=== PATIENT | male | born 1980 | race Caucasian/White ===

== ENCOUNTER 2023-08-29 06:14 | Day surgery (SDC) | payer MEDICARE, OTHER, SELFPAY ==
[2023-08-24 08:06] VITALS: BMI 41.3
[2023-08-29] VITALS (11 sets, daily range): BP systolic 117–133; BP diastolic 72–99; BMI 41.3
== END 2023-08-29 12:33 | disposition home or self-care (01) ==
LOC: GI 06:14
PROVIDERS: ATTENDING PHYSICIAN Internal Medicine Critical Care Medicine
DX: D14.31 Benign neoplasm of right bronchus and lung (principal); J98.4 Other disorders of lung; R91.8 Other nonspecific abnormal finding of lung field; R59.0 Localized enlarged lymph nodes; R91.1 Solitary pulmonary nodule
CPT/HCPCS: 31629; 31645; 31627; 31623; 31624; 31654; 88173; 88305; 88312; 71045; 76000; 87015; 87070; 87102; 87106; 87116; 87205; 88112; 88333; 94640; C1887

== ENCOUNTER → 2023-11-25 | Outpatient (REF) | payer MEDICARE, OTHER, SELFPAY | LOC: DHSLP | PROVIDERS: ATTENDING PHYSICIAN Internal Medicine Critical Care Medicine; FAMILY PHYSICIAN Nurse Practitioner | DX: G47.33 Obstructive sleep apnea (adult) (pediatric) (principal) | CPT/HCPCS: 95811 ==

== ENCOUNTER → 2023-12-30 13:13 | Outpatient (REF) | payer MEDICARE, OTHER, SELFPAY | LOC: HWRCS 13:13 | PROVIDERS: ATTENDING PHYSICIAN Internal Medicine Critical Care Medicine; FAMILY PHYSICIAN Nurse Practitioner | DX: D86.9 Sarcoidosis, unspecified (principal); R91.8 Other nonspecific abnormal finding of lung field | CPT/HCPCS: 93306 ==

== ENCOUNTER → 2024-03-02 11:23 | Outpatient (REF) | payer MEDICARE, OTHER, SELFPAY | LOC: HWCARD 11:23 | PROVIDERS: ATTENDING PHYSICIAN Registered Nurse; FAMILY PHYSICIAN Nurse Practitioner | DX: R94.31 Abnormal electrocardiogram [ECG] [EKG] (principal); Z79.899 Other long term (current) drug therapy | CPT/HCPCS: 93005 ==

== ENCOUNTER → 2024-04-27 09:52 | Outpatient (REF) | payer MEDICARE, SELFPAY | LOC: HWRAD 09:52 | PROVIDERS: ATTENDING PHYSICIAN Nurse Practitioner | DX: E66.01 Morbid (severe) obesity due to excess calories (principal); R74.8 Abnormal levels of other serum enzymes | CPT/HCPCS: 76700 ==

== ENCOUNTER → 2024-05-25 12:16 | Outpatient (REF) | payer MEDICARE, SELFPAY | LOC: HWRAD 12:16 | PROVIDERS: ATTENDING PHYSICIAN Family Medicine; FAMILY PHYSICIAN Nurse Practitioner | DX: J20.9 Acute bronchitis, unspecified (principal) | CPT/HCPCS: 71046 ==

== ENCOUNTER → 2024-06-06 11:04 | Outpatient (REF) | payer MEDICARE, SELFPAY | LOC: HWRAD 11:04 | PROVIDERS: ATTENDING PHYSICIAN Family Medicine; FAMILY PHYSICIAN Nurse Practitioner | DX: J18.9 Pneumonia, unspecified organism (principal) | CPT/HCPCS: 71046 ==

== ENCOUNTER 2024-06-08 11:12 | Emergency (ER) | payer MEDICARE, OTHER, SELFPAY ==
[2024-06-08 11:13] VITALS: BP 124/77
--- NOTE | 2024-06-08 11:39 | ED.GENMED ---
History of Present Illness
General
Chief Complaint: Breathing Problem
Source: patient
Exam Limitations: none
Time Seen by Provider: 06/08/24 11:21
History of Present Illness
History of Present Illness:
44-year-old male with history of sarcoidosis dosis, depression, hypertension, hyperlipidemia presents in referral from family doctor's office for evaluation of shortness of breath. Patient has been having this intermittently for several months. He
notes an ongoing cough for about 6 weeks that is dry. No hemoptysis. No leg swelling or calf pain. He has had x-rays most recently 2 days ago and multiple CT scans of his chest. He is followed by pulmonology. No fever or vomiting. No other
complaints at this time
Phy Exam
Physical Exam
Physical Exam:
General: Well-appearing male nontoxic no acute respiratory distress
HEENT: Normocephalic atraumatic
Heart: Regular rate and rhythm
Lungs: Clear no obvious wheeze or rales
Extremities: No cyanosis or edema
Skin: Warm no rash
Course
Vital Signs
Initial and Last Documented VS:
Initial Vital Signs
Temp Pulse Resp BP Pulse Ox
97.9 F 89 16 124/77 94
06/08/24 11:13 06/08/24 11:13 06/08/24 11:13 06/08/24 11:13 06/08/24 11:13
Last Documented Vital Signs
Temp Pulse Resp BP Pulse Ox
97.9 F 89 16 124/77 96
06/08/24 11:13 06/08/24 11:13 06/08/24 11:13 06/08/24 11:13 06/08/24 11:39
MDM/Problems Addressed
Differential Diagnosis Includes:
Patient sent in for evaluation of ongoing shortness of breath. No distress upon evaluation. Not hypoxic. I reviewed x-ray from 2 days ago which shows interval improvement of the airspace disease of the right base but shows persistence of symptoms
of the spiculated nodules.
*Critical Care Note
Total Time (30-74mins, 75-104mins- exclusive of procedures): Not Applicable
Update Note
Update Note:
Had long discussion with patient regarding treatment options. Also reach out to the family doctor who saw him today. Per the family doctor in the office his oxygen dropped to 91% and he was tachypneic after nebulizer. Upon further conversation
patient states he feels okay. He denies any new onset shortness of breath. Offered workup here including laboratory analysis CAT scan of chest for further evaluation of dyspnea however he expresses a desire to go home and follow-up with
pulmonology. Family doctor recently prescribed a new course of antibiotics that he is not started. I advise he start this and we will add a steroid and an albuterol inhaler until follow-up. He and father were in agreement with this plan.
ED Attending Note
-
Portions of this chart may have been created with voice recognition software.� Occasional wrong word or��sound alike� substitutions may have occurred due to the inherent limitations of voice recognition software.
Discharge Plan
Departure
Patient Disposition: Home (Routine Discharge)
Date of Disposition: 06/08/24
Time of Disposition: 11:56
Patient with high blood pressure during this ER visit?: No
Discharge Problem:
Dyspnea
Prescriptions:
New
prednisone 20 mg tablet
40 mg PO DAILY 5 Days Qty: 10 0RF
albuterol sulfate 90 mcg/actuation aerosol powdr breath activated
1 inh inhalation QID PRN (Reason: shortness of breath) Qty: 1 0RF
No Action
atorvastatin 40 mg Tablet
40 mg PO QPM
valsartan-hydrochlorothiazide 80-12.5 mg Tablet
1 tab PO DAILY
clomipramine 50 mg Capsule
50 mg PO DAILY
lamotrigine 100 mg Tablet
300 mg PO DAILY
paliperidone 6 mg Tablet Extended Release 24 Hr
6 mg PO DAILY
Austedo 12 mg Tablet
12 mg PO BID
multivitamin Tablet
1 tab PO DAILY
clonazepam [Klonopin] 1 mg Tablet
1 mg PO PRN PRN (Reason: seizure)
cyanocobalamin (vitamin B-12)
1 dose PO DAILY
fenofibrate nanocrystallized 145 mg Tablet
145 mg PO DAILY
Activity Restrictions/Additional Instructions:
Use inhaler as needed for shortness of breath. Take steroid as directed. Start your antibiotic as prescribed by the family doctor. Please return here for worsening symptoms otherwise follow-up with your docking saw operator as planned
Interventions
Interventions:
*Risk Screen - Suicide Last Done: 06/08/24 11:13
*General Assessment Last Done: 06/08/24 11:13
*Neglect/Abuse Screening Last Done: 06/08/24 11:13
*ED COVID-19 Vaccine History Last Done: 06/08/24 11:41
Discharge Date and Time
Print Language: UKRAINIAN
[2024-06-08 11:40] VITALS: BMI 42.2
== END 2024-06-08 12:13 | disposition home or self-care (01) ==
LOC: EMR 11:12
PROVIDERS: EMERGENCY PHYSICIAN Emergency Medicine; FAMILY PHYSICIAN Nurse Practitioner
DX: R06.00 Dyspnea, unspecified (principal); D86.9 Sarcoidosis, unspecified; E78.00 Pure hypercholesterolemia, unspecified; I10 Essential (primary) hypertension
CPT/HCPCS: 99282

== ENCOUNTER → 2024-06-29 10:51 | Outpatient (REF) | payer MEDICARE, OTHER, SELFPAY | LOC: MRI 3T 10:51 | PROVIDERS: ATTENDING PHYSICIAN Student in an Organized Health Care Education/Training Program; FAMILY PHYSICIAN Nurse Practitioner | DX: R79.89 Other specified abnormal findings of blood chemistry (principal); R74.8 Abnormal levels of other serum enzymes; K76.0 Fatty (change of) liver, not elsewhere classified | CPT/HCPCS: 74183; A9575 ==

== ENCOUNTER → 2024-07-06 10:56 | Outpatient (REF) | payer MEDICARE, OTHER, SELFPAY | LOC: HWRAD 10:56 | PROVIDERS: ATTENDING PHYSICIAN Internal Medicine Critical Care Medicine; FAMILY PHYSICIAN Nurse Practitioner | DX: D86.9 Sarcoidosis, unspecified (principal); R93.89 Abnormal findings on diagnostic imaging of other specified body structures | CPT/HCPCS: 71250 ==

== ENCOUNTER → 2024-11-05 08:58 | Outpatient (REF) | payer MEDICARE, OTHER, SELFPAY | LOC: MRI 08:58 | PROVIDERS: ATTENDING PHYSICIAN Student in an Organized Health Care Education/Training Program | DX: R74.8 Abnormal levels of other serum enzymes (principal); K76.0 Fatty (change of) liver, not elsewhere classified | CPT/HCPCS: 74183; 76391; A9575 ==

== ENCOUNTER → 2025-03-08 10:56 | Outpatient (REF) | payer MEDICARE, OTHER, SELFPAY | LOC: RAD 10:56 | PROVIDERS: ATTENDING PHYSICIAN Internal Medicine Critical Care Medicine; FAMILY PHYSICIAN Nurse Practitioner | DX: D86.9 Sarcoidosis, unspecified (principal); R59.1 Generalized enlarged lymph nodes | CPT/HCPCS: 71260; Q9967 ==